=== PATIENT | female | born 1985 | race Caucasian/White ===

== ENCOUNTER → 2018-11-17 | Outpatient (CLI) | payer OTHER | LOC: FIMAGING 12:08 | PROVIDERS: ATTEND Obstetrics & Gynecology | DX: O09.812 Supervision of pregnancy resulting from assisted reproductive technology, second trimester (principal); Z3A.20 20 weeks gestation of pregnancy ==

== ENCOUNTER → 2018-12-10 | Outpatient (CLI) | payer OTHER | LOC: FIMAGING 09:15 | PROVIDERS: ATTEND Obstetrics & Gynecology | DX: O09.812 Supervision of pregnancy resulting from assisted reproductive technology, second trimester (principal) ==

== ENCOUNTER 2018-12-21 22:05 | Observation (INO) | payer OTHER ==
--- NOTE | 2018-12-21 22:57 | SOAPPROG ---
SOAP Progress Note Assessment/Plan: Assessment: 33 female with first preg at 25 weeks/ co upper abd pain for 3 days radiating into back nonicteric/ abd slightly tender ruq suspicious for GB sx Plan:gb us, check lfts 12/21/18 22:54 ICD10 Worksheet Patient Problems: Problems Problem Status Onset Abdominal pain Acute
[2018-12-22] MEDS ORDERED: ONDANSETRON DISINTEGRATING 4 MG TAB PO PRN (00:26)
[2018-12-22 00:34] LABS: PLATELET COUNT 250 10^3/uL (150-400)
[2018-12-22] MEDS: HYDROCODONE/APAP 5/325 TAB PO PRN ×2 (00:43→05:10)
--- NOTE | 2018-12-22 01:00 | GHP ---
[f rep st] PREOP HISTORY AND PHYSICAL DATE OF ADMISSION: 12/21/2018 ADMISSION DIAGNOSIS: Intrauterine at 25 and 3/7 weeks' gestation and upper abdominal pain. HISTORY OF PRESENT ILLNESS: Patient is a 33-year-old, 1, para 0, who is 25 and 3/7 weeks' station. She has received care with [facility] since the 1st trimester. 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 Patient was seen in the office earlier today with complaint of upper abdominal pain which st arts primarily in the middle and goes to the left side and then radiates around to her back. She has had the pain for the last couple days. She had nausea and heartburn over the weekend, so she took Z antac. It improved slightly and then worsened again today. She was seen in the office and examined. status was reassuring. Her abdomen was nontender. The signs or symptoms were more consisten t with gallbladder disease, but [facility] labs were obtained to ensure that no preeclampsia or atypical pre eclampsia signs were missed. Heart tones were auscultated in the office. Exam was benign. Patient was sent to the lab. Her labs were obtained. When I called her later this evening to inform her of her normal lab results, she stated that the pain had worsened and she wanted to come for evaluation. On arrival patient states that she is in significant pain but appears to be sitting comfortably. PHYSICAL EXAMINATION: VITAL SIGNS: Stable. GENERAL APPEARANCE: Alert and oriented x3. MUSCULOSKE LETAL: Grossly intact. PSYCH: Appropriate affect. LUNGS: Clear to auscultation bilaterally. ABD OMEN: Gravid, nondistended, nontender. She does have slight tenderness in the upper abdomen. There is mild CVA tenderness bilaterally, so urine culture was sent. heart tracing is appropriate f or gestational age. She is not having any contractions. Xavier Duncan MD, was consulted for General Surgery for suspected gallbladder. ASSESSMENT AND PLAN: 33-year-old, 1, para 0, at 25 and 3/7 weeks' gestation here for evaluat ion of upper abdominal pain, and it is thought that this is not related to , more likely gal lbladder disease. She will be managed by General Surgery, who has been consulted. She will have sonny e pain medicine and antinausea medicine and will be observed and then we will review the ultrasound w ith her once it is obtained in the morning. /[id number]/MODL
--- NOTE | 2018-12-22 08:52 | SOAPPROG ---
SOAP Progress Note Assessment/Plan: Assessment/Plan: 33 Y gravid F, 25 weeks, c/o RUQ abd pain c radiation to back. US without stones. LFTs normal. Hesitant to get more imaging now due to . Patient appears comfortable now--does not have a surgical abdomen. Will continue to observe on clear liquid diet. Added pepcid in case of gastritis /reflux pain. Discussed with OB. Will continue to follow throughout the day. Seen and examined c Dr. Duncan. S: still having ruq pain but improved with a norco this am. had some nausea over night improved c zofran. O: alert, nad mmm, no jaundice no wob abd soft, gravid, mild ruq tenderness, no guarding 12/22/18 08:40 Objective: Laboratory Results 12/21/18 23:47 12/21/18 23:47 ICD10 Worksheet Patient Problems: Problems Problem Status Onset Abdominal pain Acute
[2018-12-22] MEDS ORDERED: FAMOTIDINE 20 MG TAB PO SCH (09:00)
--- NOTE | 2018-12-22 10:51 | SOAPPROG ---
REYNALDO Progress Note Assessment/Plan: Assessment: 33 y/o @ 25 weeks admitted for observation for upper abdominal pain and nausea Plan: Appreciate surgery input. Pt's ultrasound was neg for gallstones. She is beginning to feel better on Pepcid. I will give Tylenol for her HUTTON now and she will try clears. If tolerating, may advance diet per surgery recs. She does not appear to have a surgical abdomen now. 12/22/18 10:51 Subjective: Pt is feeling better this am. She reports nausea has improved since receiving Pepcid this am. She has less pain around her upper abdomen and back this am, but some is still present. She is beginning to feel hungry and has a mild HUTTON. She denies cramping or contractions and has good FM. Objective: Laboratory Results 12/21/18 23:47 12/21/18 23:47 - Time Spent With Patient Time Spent With Patient: 15 minutes - Pending Discharge Pending Discharge Within 24 Hours: Yes Pending Discharge Date: 12/23/18 Pending Discharge Time: 11:00 Physical Exam - Physical Exam General Appearance: WD/WN, alert, no apparent distress Neck: non-tender, full range of motion, supple Respiratory: chest non-tender, lungs clear, normal breath sounds Cardiac/Chest: regular rate, rhythm Abdomen: normal bowel sounds, other (some upper abdominal tenderness) Extremities: swelling (no), Vivi's sign (neg) ICD10 Worksheet Patient Problems: Problems Problem Status Onset Abdominal pain Acute
[2018-12-22] MEDS ORDERED: ACETAMINOPHEN 500 MG TAB PO PRN (10:54)
[2018-12-22 15:13] VITALS: BP 108/59
== END 2018-12-22 15:00 | disposition home or self-care (01) ==
LOC: FLD 22:05
PROVIDERS: ADMIT Obstetrics & Gynecology; ATTEND Obstetrics & Gynecology
DX: O99.89 Other specified diseases and conditions complicating pregnancy, childbirth and the puerperium (principal); R10.10 Upper abdominal pain, unspecified; Z3A.25 25 weeks gestation of pregnancy; O09.812 Supervision of pregnancy resulting from assisted reproductive technology, second trimester
CPT/HCPCS: 59025; 76700; G0378